=== PATIENT | female | born 1980 | race Caucasian/White ===

== ENCOUNTER 2020-01-20 23:23 | Inpatient (IN) | payer OTHER | END 2020-01-26 11:21 | disposition home or self-care (01) | DRG 689 | LOC: ER 23:23 → EROBS 01-21 03:12 → 4W 01-21 14:58 | PROVIDERS: ADMIT Hospitalist | PROC: 05HD33Z Insertion of Infusion Device into Right Cephalic Vein, Percutaneous Approach (ICD-10-PCS; principal; 2020-01-25) | DX: N30.00 Acute cystitis without hematuria (principal); K85.90 Acute pancreatitis without necrosis or infection, unspecified; I10 Essential (primary) hypertension; F17.210 Nicotine dependence, cigarettes, uncomplicated; F12.90 Cannabis use, unspecified, uncomplicated; K76.0 Fatty (change of) liver, not elsewhere classified; F10.10 Alcohol abuse, uncomplicated; B96.20 Unspecified Escherichia coli [E. coli] as the cause of diseases classified elsewhere; B95.8 Unspecified staphylococcus as the cause of diseases classified elsewhere; Z79.899 Other long term (current) drug therapy ==

== ENCOUNTER 2020-05-30 03:05 | Inpatient (IN) | payer OTHER ==
[~2020-05-30] VITALS: Ht 170.2 cm; Wt 90.4 kg
[~2020-05-30 03:05] MED LIST: CATAPRES0.1 MG PO; HYDROCODON-ACE1 EAC7 PO; LEVAQUIN 500 M500 M1 PO
[2020-05-30 03:09] VITALS: BP 233/153
[2020-05-30 03:44] LABS: HEMATOCRIT 48.1 % (37.0-47.0); HEMOGLOBIN 16.3 gm/dL (12.0-15.0); MCH 35.7 pg (26.0-34.0); MCHC 33.9 g/dL (28.0-37.0); MCV 105.4 fL (80.0-100.0); PLATELET COUNT 311 thou/uL (150-400); RBC 4.56 mil/uL (4.20-5.00); RDW 15.6 % (10.5-14.5); WBC 12.1 thou/uL (4.0-11.0)
[2020-05-30 03:47] LABS: ANION GAP 18 mmol/L (7-16); BUN 9 mg/dL (7-18); CALCIUM 9.6 mg/dL (8.5-10.1); CHLORIDE 95 mmol/L (98-107); CO2 20 mmol/L (21-32); CREATININE 0.8 mg/dL (0.6-1.0); GLUCOSE 148 mg/dL (74-106); POTASSIUM 3.2 mmol/L (3.5-5.1); SODIUM 133 mmol/L (136-145)
[2020-05-30 03:54] LABS: URINE BILIRUBIN NEGATIVE (Negative); URINE BLOOD 3+ (Negative); URINE CLARITY SL CLOUDY; URINE COLOR YELLOW; URINE GLUCOSE-RANDOM* NEGATIVE (Negative); URINE KETONES NEGATIVE (Negative); URINE PROTEIN (DIPSTICK) 2+ (Negative); URINE UROBILINOGEN 0.2 E.U./dl (0.2-1.0)
[2020-05-30 03:54] LABS: ABSOLUTE NEUTROPHILS 9.5 thou/uL (1.4-8.2); BASOPHILS 0.5 % (0.0-2.0); EOSINOPHILS 1.4 % (0.0-3.0); LYMPHOCYTES 15.3 % (24.0-44.0); MONOCYTES 4.3 % (1.0-8.0); POLYS 78.5 % (36.0-66.0)
[2020-05-30 03:56] LABS: URINE LEUKOCYTES-REFLEX 2+ (Negative); URINE NITRITE-REFLEX POSITIVE (Negative)
[2020-05-30 03:57] LABS: ALBUMIN 4.5 g/dL (3.4-5.0); LIPASE 3221 U/L (73-393); SGOT 143 U/L (15-37); SGPT 61 U/L (30-65); TOTAL BILIRUBIN 1.4 mg/dL (0.2-1.0); TOTAL PROTEIN 8.9 g/dL (6.4-8.2); TROPONIN-I <0.06 ng/mL (<0.06)
[2020-05-30 04:08] LABS: BACTERIA-REFLEX >30 Many /HPF (None Seen); CASTS None Seen /LPF (None Seen); CRYSTALS None Seen /LPF (None Seen); MUCUS 0-3 Light strn/LPF (None Seen); SQUAMOUS None Seen /LPF (0-3); URINE WBC-REFLEX >25 Many /HPF (0-5)
[2020-05-30 06:37] VITALS: BP 196/129
[2020-05-30 06:42] VITALS: BP 194/136
--- NOTE | 2020-05-30 07:50 | EKG ---
[facility] [place] [address] ELECTROCARDIOGRAM REPORT Name: TRUONG OLGUIN Room #: 443- ADM IN M.R.#: [id number] Admission: 05/30/20 Attend Phys: Mark Castrejon MD Discharge: Date of : 78 Report #: [id number] THIS REPORT FOR: cc: NO FAMILY PHYSICIAN or PCP NO FAMILY PHYSICIAN or PCP Magdaleno Graham MD [facility] ~ THIS REPORT FOR: //name// [facility] ED Test Date: 2020-05-30 Test Time: 03:45:01 Pat Name: TRUONG OLGUIN Department: Room: 44 Gender: F Row Boss: : 1980 Requested By: Lukasz Rosenthal Order Number: [id number] MD: Magdaleno Graham Measurements Intervals Monument Rate: 101 P: 38 HI: 164 QRS: 12 QRSD: 94 T: 52 QT: 396 QTc: 514 Interpretive Statements Sinus tachycardia Prolonged QT interval Compared to ECG 01/21/2020 00:11:10 Prolonged QT interval now present Electronically Signed On 05-30-2020 7:50:12 CDT by Magdaleno Graham [email or web address] <ELECTRONICALLY SIGNED> By: Magdaleno Graham MD, FACC 05/30/20 0750 [id number] Magdaleno Graham MD, [facility] /EPI
[2020-05-30 08:52] LABS: AMP/METHAMP Negative (Negative); BARBITURATES Negative (Negative); BENZODIAZEPINES Negative (Negative); COCAINE Negative (Negative); METHADONE Negative (Negative); OPIATES Negative (Negative); PCP Negative (Negative)
[2020-05-30 10:00] VITALS: BP 210/70
--- NOTE | 2020-05-30 14:59 | NUR ---
ASSESSMENT: CM REVIEWED CHART AND SPOKE WITH PATIENT. PT IS ALERT AND ORIENTED X4. PT IS ADMITTED FROM HOME DUE TO PANCREATITIS. PT REPORTS LIVING AT HOME WITH HER SPOUSE AND SON. PT REPORTS BEING FULLY INDEPENDENT WITH ADLS AND AMBULATION. PT REPORTS SHE CURRENTLY DOES NOT HAVE ANY INSURANCE. MED ASSIST WILL FOLLOW PATIENT. CM PROVIDED PATIENT WITH A SAFETY NET PACKET FOR OUTPATIENT RESOURCES SHE HAS NO PCP. PT IS CURRENTLY NPO. CM WILL CONTINUE TO FOLLOW TO ASSIST NEEDED.
[2020-05-30 19:42] VITALS: BP 206/129
--- NOTE | 2020-05-30 20:45 | NUR ---
PATIENT ADMITTED TO ROOM 443 FROM ER PATIENT ALERT XS 4 LIVES WITH AND SON. Yue.S 97.7 20 88 210/70 O2 SAT = 94 % RA HEIGHT = 5'7" WEIGHT = 199 DR SULLIVAN HERE ON UNIT THIS NURSE ASKED IF SHE COULD HAVE CLONIDINE THAT SHE HAD BROUGHT FROM HOME HE SAID THAT FAM DRIVE AWAY DRIVER WAS GOING TO PUT MEDS IN NOT TO GIVE HERE B/P MED. ADMISSION PAPERWORK COMPLETED. FLUIDS AND KCL X1 GIVEN IV ORDERED HAD 1 BAG IV KCL IN ER. IV NURSE RESTARTED IV AND PUT IN 2 RIGHT FA PATIENT REQUESTED PATIENT HAD STATED IV WAS HURTING. GIVEN PRN PAIN MED IV REQUESTED.
[2020-05-30 21:49] VITALS: BP 197/128
[2020-05-31 00:30] VITALS: BP 180/122
--- NOTE | 2020-05-31 03:58 | NUR ---
ASSUMED PT CARE AT 1900.PT'S BP AT START OF SHIFT WAS ELEVATED,PRN MED GIVEN,MIN CHANGE NOTED.PT COMPLAINED THAT HER ABD PAIN FLARED UP AFTER THE PRN MED WAS GIVEN.SHE ALSO COMPLAINED THAT SHE WAS FLUSHED AND HOT.PT'S BP RECHECKED,WAS 184/118.PT REF TO TAKE THE MED AGAIN.CALL PLACED TO THE TANGLED YARN WORKER ON DUTY,WAITING ON A CALL BACK.
[2020-05-31 07:28] VITALS: BP 173/112
[2020-05-31 09:40] LABS: MCH 35.8 pg (26.0-34.0); MCHC 33.3 g/dL (28.0-37.0); MCV 107.4 fL (80.0-100.0); PLATELET COUNT 238 thou/uL (150-400); RBC 3.63 mil/uL (4.20-5.00); RDW 15.9 % (10.5-14.5)
[2020-05-31 09:48] LABS: CALCIUM 8.9 mg/dL (8.5-10.1); CREATININE 0.8 mg/dL (0.6-1.0); POTASSIUM 3.7 mmol/L (3.5-5.1)
[2020-05-31 10:00] LABS: BASOPHILS 0.9 % (0.0-2.0); EOSINOPHILS 4.9 % (0.0-3.0); LYMPHOCYTES 17.4 % (24.0-44.0); MONOCYTES 5.4 % (1.0-8.0); POLYS 71.4 % (36.0-66.0)
[2020-05-31 10:23] LABS: ALBUMIN 3.4 g/dL (3.4-5.0); TOTAL BILIRUBIN 0.6 mg/dL (0.2-1.0)
[2020-05-31 11:49] LABS: ANISOCYTOSIS 1+; MACROCYTES 2+
--- NOTE | 2020-05-31 12:29 | NUR ---
Assumed care of pt at 0700. Pt a&ox4. C/o abd pain and headache. Prn pain meds administered. IVF and IV antibiotics infusing. Up ad yulissa. Call light withinr reach. Will continue to monitor.
--- NOTE | 2020-05-31 14:11 | NUR ---
ON-GOING ASSESSMENT: CM REVIEWED CHART. PT REMAINS NPO. CONTINUING WITH PAIN CONTROL AND IS ON IV FLUIDS. CM WILL CONTINUE TO FOLLOW TO ASSIST NEEDED.
[2020-05-31 16:30] VITALS: BP 168/103
[2020-05-31 19:45] VITALS: BP 162/110
[2020-06-01 02:27] VITALS: BP 178/104
--- NOTE | 2020-06-01 04:58 | NUR ---
PT'S BP STILL ELEVATED THIS SHIFT.CONTAINER SHOP WELDER ON DUTY NOTIFIED,ORDER NOTED AND CARRIED OUT.PT C/O ABD PAIN,MANAGED WITH PRN MED.PT UP ADLIB IN THE ROOM.PT ABLE TO MAKE HER NEEDS KNOWN.IVF INFUSING ORDERED.WILL CONT TO MONITOR.
[2020-06-01 05:38] VITALS: BP 169/102
[2020-06-01 06:23] LABS: HEMATOCRIT 37.7 % (37.0-47.0); HEMOGLOBIN 12.9 gm/dL (12.0-15.0); MCH 36.2 pg (26.0-34.0); MCHC 34.1 g/dL (28.0-37.0); MCV 106.3 fL (80.0-100.0); RBC 3.55 mil/uL (4.20-5.00); WBC 7.9 thou/uL (4.0-11.0)
[2020-06-01 06:35] LABS: CREATININE 0.7 mg/dL (0.6-1.0); POTASSIUM 3.9 mmol/L (3.5-5.1)
[2020-06-01 07:30] VITALS: BP 155/108
--- NOTE | 2020-06-01 13:24 | NUR ---
on-going assessment: cm reviewed chart and spoke with attending. pt is slowly progressing towards discharge goals. possible discharge home in the next 1-2 days.
[2020-06-01 15:40] VITALS: BP 157/99
--- NOTE | 2020-06-01 17:19 | NUR ---
Assumed care of pt. at 0700. Pt. was calm and cooperative. Pt. complained of pain throughout the day and was given the perscribed medications when indicated.
[2020-06-01 20:15] VITALS: BP 162/108
--- NOTE | 2020-06-01 23:46 | NUR ---
PT TOLERATING CLR LIQUID DIET.SHE IS UP AD EDENILSON IN ROOM. PAIN MANAGED BY ORAL AND IV PAIN MEDS.AFEBRILE. CONTINUES ON IVF. AFEBRILE.
[2020-06-02 06:24] LABS: HEMATOCRIT 41.2 % (37.0-47.0); HEMOGLOBIN 14.1 gm/dL (12.0-15.0); MCH 36.6 pg (26.0-34.0); MCHC 34.1 g/dL (28.0-37.0); MCV 107.5 fL (80.0-100.0); RBC 3.84 mil/uL (4.20-5.00); RDW 16.1 % (10.5-14.5); WBC 5.8 thou/uL (4.0-11.0)
[2020-06-02 06:33] LABS: CALCIUM 9.9 mg/dL (8.5-10.1); CREATININE 0.9 mg/dL (0.6-1.0); POTASSIUM 3.3 mmol/L (3.5-5.1)
[2020-06-02 07:55] VITALS: BP 162/104
[2020-06-02 13:48] VITALS: BP 153/100
--- NOTE | 2020-06-02 14:44 | NUR ---
ON-GOING ASSESSMENT: CM REVIEWED CHART. PATIENT IS BEING ADVANCED TO A SOFT DIET AND CAN DISCHARGE PER GI STANDPOINT. AWAITING INPUT FROM ATTENDING. PT WILL HAVE NO NEEDS FROM CM AT DISCHARGE AND WILL DISCHARGE HOME.
[2020-06-02 19:30] VITALS: BP 135/96
--- NOTE | 2020-06-02 22:29 | NUR ---
Assumed care of pt. at 0700. Pt. is calm and cooperative. Pt. still complains of pain and requests pain medication at appropriate times. Pt. was able to advance to mechanical soft diet for dinner and did not have any issues digesting with nausea or vomitting. Pt. hopes to go home tomorrow.
--- NOTE | 2020-06-02 23:34 | NUR ---
PT IS PACING UP AND DOWN THE HALLWAYS. SHE IS HOLDING HER STOMACH. ASKED HER RATE OF PAIN AND ITS A CONSISTENT 7 OR 8. SHE IS REQUESTING THE IV FENTANYL AND OXYCODONE ON SCHEDULE. SHE WAS EDUCATED ON THE NEED TO STAY OFF THE FENTANYL FOR THE PROSPECTS OF D/C TOMORROW. SHE ATE DINNER WELL AND DENIES ANY NAUSEA OR VOMITING.VOIDING WELL. DRINKING WELL.BP BETTER.AFEBRILE.WILL CONTINUE WITH POC TILL EOS.
[2020-06-03 03:53] VITALS: BP 155/102
[2020-06-03 07:20] VITALS: BP 152/103
[2020-06-03 07:29] LABS: ALBUMIN 3.9 g/dL (3.4-5.0); CALCIUM 9.6 mg/dL (8.5-10.1); CREATININE 0.9 mg/dL (0.6-1.0); POTASSIUM 3.8 mmol/L (3.5-5.1); TOTAL BILIRUBIN 0.3 mg/dL (0.2-1.0); TOTAL PROTEIN 7.5 g/dL (6.4-8.2)
[2020-06-03] MEDS ORDERED: LEVOFLOXACIN500 MG PO (09:12)
[2020-06-03] MEDS ORDERED: CARVEDILOL12.5 MG PO (09:13)
[2020-06-03] MEDS ORDERED: NORVASC10 MG PO (09:13)
[2020-06-03] MEDS ORDERED: CATAPRES0.1 MG PO (09:13)
[2020-06-03 10:12] VITALS: BP 152/103
[2020-06-03] MEDS ORDERED: LORCET 5-325 M1 EACH PO (11:50)
--- NOTE | 2020-06-03 12:04 | NUR ---
ON-GOING ASSESSMENT: CM REVIEWED CHART. PATIENT HAS ORDERS TO DISCHARGE HOME TODAY AND IS ASKING TO GET HER MEDICATION VOUCHERED FOR SHE HAS NO INSURANCE. CM SPOKE [facility] DIRECTOR WHO APPROVED THIS. CM FILLED PATIENTS MEDICATIONS AT [facility] COSTING 37.60. CM PROVIDED THE MEDICATIONS TO THE BEDSIDE NURSE. PT HAS NO FURTHER NEEDS FROM CM PRIOR TO DISCHARGE. CASE CLOSED.
--- NOTE | 2020-06-03 12:09 | NUR ---
ASSUMED CARE OF PT AT 0700. PT IS A&OX4. BP ELEVATED IN AM, MANAGED WITH PO MEDICATIONS. ORDERS FOR D/C HOME TODAY. IV REMOVED AT TIME OF DISCHARGE. PT PROVIDED WITH D/C PACKET AT TIME OF DISCHARGE. REVIEWED WITH PT DISCHARGE INSTRUCTIONS, MEDICATIONS, AND EDUCATION. PT PROVIDED WITH MEDICATIONS FOR DISCHARGE AND SCRIPT FOR [place]. PT DENIED QUESTIONS OR CONCERNS AT TIME OF DISCAHRGE. PT COLLECTED BELONGINGS AND WAS EXCORTED TO ED ENTRANCE BY NURSING.
== END 2020-06-03 12:14 | disposition home or self-care (01) | DRG 432 ==
LOC: ER 03:05 → EROBS 05:21 → 4S 05:21
PROVIDERS: Emergency Medicine; Nurse Practitioner; Nurse Practitioner Family; ADMIT Hospitalist; ATTEND Hospitalist
DX: K70.10 Alcoholic hepatitis without ascites (principal); K85.90 Acute pancreatitis without necrosis or infection, unspecified; N30.00 Acute cystitis without hematuria; I10 Essential (primary) hypertension; F17.210 Nicotine dependence, cigarettes, uncomplicated; F12.90 Cannabis use, unspecified, uncomplicated; B95.8 Unspecified staphylococcus as the cause of diseases classified elsewhere; I16.0 Hypertensive urgency; E87.6 Hypokalemia; K76.0 Fatty (change of) liver, not elsewhere classified; B96.20 Unspecified Escherichia coli [E. coli] as the cause of diseases classified elsewhere; Z28.21 Immunization not carried out because of patient refusal; Z79.899 Other long term (current) drug therapy
CPT/HCPCS: 10195